=== PATIENT | female | born 1975 | race Caucasian/White ===

== ENCOUNTER 2019-01-02 22:21 | Inpatient (IN) | payer MEDICAID ==
[~2019-01-02] VITALS: Ht 170.2 cm; Wt 120.1 kg
[2019-01-02] MEDS ORDERED: KETOROLAC TROMETH 15 mg/ml 1ML VL IV ONE (22:45)
[2019-01-02] MEDS ORDERED: MORPHINE SULFATE 4 MG/ML SYR/VIAL IV ONE (22:45)
[2019-01-02] MEDS ORDERED: ONDANSETRON HCL 4 MG/2 ML VIAL IV ONE (22:45)
[2019-01-02 23:48] LABS: Basophils # (auto) 0 uL; Basophils % (auto) 0.4 % (0.0-2.0); Eosinophils # (auto) 0 uL; Eosinophils % (auto) 0.6 % (0.0-7.0); Hematocrit 44.9 % (36.0-46.0); Hemoglobin 15.5 g/dL (12.2-16.2); Lymphocytes # (auto) 1.7 uL; Lymphocytes % (auto) 20.8 % (10.0-50.0); Mean Corpuscular Hemoglobin 30.3 pg (28.0-32.0); Mean Corpuscular Hgb Conc. 34.5 g/dL (32.0-36.0); Mean Corpuscular Volume 87.8 fL (80.0-100.0); Monocytes # (auto) 0.6 uL; Monocytes % (auto) 7.8 % (0.0-12.0); Neutrophils # (auto) 5.7 uL; Neutrophils % (auto) 70.4 % (37.0-80.0); Platelet Count (auto) 183 10^3/uL (140-450); Red Blood Cells 5.12 10^6/uL (4.0-5.20); Red Cell Distribution Width 13.7 % (11.8-14.3); White Blood Cell 8.2 10^3/uL (4.4-10.8)
[2019-01-03 00:48] LABS: Albumin 3.7 g/dL (3.4-5.0); BUN/Creatinine Ratio 15.8; Calcium 8.5 mg/dL (8.5-10.1); Potassium 3.8 mmol/L (3.5-5.1)
[2019-01-03 00:57] LABS: Bilirubin, Total 0.7 mg/dL (0.2-1.0); Total Protein 7.2 g/dL (6.4-8.2)
[2019-01-03 01:49] LABS: Urine Bacteria NONE SEEN /hpf (None Seen); Urine Blood Negative /uL (Negative); Urine Mucus FEW (None Seen); Urine Specific Gravity 1.028 (1.001-1.035); Urine WBC 1 /hpf (0 - 5)
[2019-01-03] MEDS ORDERED: IOHEXOL 300 MG/ML 100ML BOTTLE IJ ONE (05:41)
[2019-01-03] MEDS: SODIUM CHLORIDE 0.9% 1,000 ML IV SCH ×2 (10:27→20:49)
[2019-01-03] MEDS ORDERED: traMADol HCL 50 MG TAB PO PRN (10:30)
[2019-01-03] MEDS ORDERED: TEMAZEPAM 15 MG CAP PO PRN (10:30)
[2019-01-03] MEDS ORDERED: KETOROLAC TROMETH 15 mg/ml 1ML VL IV PRN (10:30)
[2019-01-03] MEDS ORDERED: DEXTROSE (50%) 50ML SYRG IV PRN (10:30)
[2019-01-03] MEDS ORDERED: PROMETHAZINE HCL 25 MG/ML 1ML IV PRN (10:30)
[2019-01-03 11:36] LABS: Amylase 53 U/L (25-115); Lipase 49 U/L (73-393)
[2019-01-03] MEDS: ACCU-CHEK COMFORT CURVE STRIP VI SCH ×2 (12:01→17:50)
--- NOTE | 2019-01-03 14:23 | NUR ---
Telemetry admit from ER BARRERA,TRUNG admitted to Telemetry unit after SBAR received from TELEVISION AND RADIO REPAIRERMANASA Bryant. Patient oriented to Shyla Renner RN primary RN, unit, room, bed, and unit policies regarding patient care and visiting hours. Patient weighed by bed scale and encouraged to call if they need something. All questions and concerns addressed, patient verbalized understanding. Addendum: 01/03/19 at 1650 by Shyla Renner RN RN MED/SURG ADMIT
[2019-01-03] MEDS ORDERED: METH-532 PO (15:46)
[2019-01-03] MEDS ORDERED: DICL50TA4 PO (15:46)
[2019-01-03] MEDS ORDERED: TRAM50TA2 PO ×2 (15:46→15:52)
[2019-01-03 16:36] VITALS: BP 122/70
--- NOTE | 2019-01-03 19:11 | NUR ---
CLOSING SHIFT NOTE ENDORSED CARE TO LADLE OPERATOR MANASA ROSS. PATIENT HAS NO S/S OF DISTRESS/SOB OR PAIN AT THIS TIME.
--- NOTE | 2019-01-03 19:40 | NUR ---
Opening Shift Note Assumed care of patient, awake and alert. No S/S of distress/SOB or pain. Instructed on POC and to call for assist PRN, will continue to monitor for changes Q1hr and PRN.
[2019-01-03 22:00] VITALS: BP 110/74
[2019-01-03] MEDS: FAMOTIDINE 20 MG TAB PO SCH (22:31)
[2019-01-04] MEDS: ACCU-CHEK COMFORT CURVE STRIP VI SCH ×2 (00:16→06:22)
[2019-01-04 05:00] VITALS: BP 127/57
[2019-01-04] MEDS: SODIUM CHLORIDE 0.9% 1,000 ML IV SCH (06:23)
[2019-01-04 07:14] LABS: Potassium 3.8 mmol/L (3.5-5.1)
[2019-01-04 07:19] LABS: Albumin 2.9 g/dL (3.4-5.0); BUN/Creatinine Ratio 11.1; Calcium 8.2 mg/dL (8.5-10.1)
[2019-01-04 07:21] LABS: Bilirubin, Total 0.7 mg/dL (0.2-1.0); Total Protein 6.3 g/dL (6.4-8.2)
[2019-01-04 08:00] VITALS: BP 95/58
[2019-01-04] MEDS: FAMOTIDINE 20 MG TAB PO SCH (09:09)
--- NOTE | 2019-01-04 10:30 | NUR ---
DR. SAHU AT BEDSIDE DR. SAHU ORDERED TO CHANGE DIET TO REGULAR AND DC ACCU CHECK , IF PT TOLERATES DIET AFTER LUNCH PT CAN GO HOME.
[2019-01-04 10:51] VITALS: BP 95/58
--- NOTE | 2019-01-04 13:30 | NUR ---
pt tolerated regular diet for lunch.
--- NOTE | 2019-01-04 13:45 | NUR ---
Discharge instructions given as ordered. Encourage to follow up with DR. MCKEON IN 1 WEEK, AND FOLLOW UP WITH DR. CALHOUN IN 1-2 WEEKS, TEL# AND ADDRESS PROVIDED TO THE PT, UNABLE TO MAKE AN APPOINTMENT OFFICE IS CLOSE ON WEEKEND. All questions and concerns addressed. Patient verbalized understanding. Medication reconciliation form completed and copy given to patient. IV removed with catheter intact, pressure dressing applied. Patient PREFERRED TO WALK to vehicle via wheelchair with all personal belongings, accompanied by staff and family member. No distress noted at time of departure.
== END 2019-01-04 13:45 | disposition home or self-care (01) ==
LOC: ER 22:21 → OVERFLOW 01-03 10:27 → CENTRAL 01-03 14:39
PROVIDERS: ADMIT Internal Medicine; ATTEND Internal Medicine
DX: K80.20 Calculus of gallbladder without cholecystitis without obstruction (principal); E66.01 Morbid (severe) obesity due to excess calories; N83.8 Other noninflammatory disorders of ovary, fallopian tube and broad ligament; G89.29 Other chronic pain; R73.9 Hyperglycemia, unspecified; M54.6 Pain in thoracic spine; S83.206A Unspecified tear of unspecified meniscus, current injury, right knee, initial encounter; M25.561 Pain in right knee; X58.XXXA Exposure to other specified factors, initial encounter; Z68.41 Body mass index [BMI] 40.0-44.9, adult; Z91.018 Allergy to other foods; Z83.2 Family history of diseases of the blood and blood-forming organs and certain disorders involving the immune mechanism; Z80.8 Family history of malignant neoplasm of other organs or systems; Z82.3 Family history of stroke; Z83.3 Family history of diabetes mellitus; Z90.711 Acquired absence of uterus with remaining cervical stump; Z71.3 Dietary counseling and surveillance; Y93.89 Activity, other specified; Y92.89 Other specified places as the place of occurrence of the external cause; Y99.8 Other external cause status
CPT/HCPCS: 36415; 74177; 76705; 76856; 80053; 80320; 81001; 81025; 82150; 82962; 83036; 83690; 85025; 85652; 96374; 96375; G0378; J2405